=== PATIENT | female | born 1995 | race Two or more races ===

== ENCOUNTER 2024-03-04 01:41 | Observation (INO) | payer BC ==
[~2024-03-04] VITALS: Ht 154.9 cm; Wt 67.1 kg
== END 2024-03-04 02:48 | disposition home or self-care (01) ==
LOC: LDRP 01:41
PROVIDERS: ADMIT Obstetrics & Gynecology; ATTEND Obstetrics & Gynecology
DX: O36.8130 Decreased fetal movements, third trimester, not applicable or unspecified (principal); Z3A.32 32 weeks gestation of pregnancy; Z88.0 Allergy status to penicillin
CPT/HCPCS: 59025; 76818; 81002; 94760; G0378

== ENCOUNTER 2024-04-28 14:29 | Observation (INO) | payer BC ==
[2024-04-28] MEDS ORDERED: PREN-96 PO (16:26)
== END 2024-04-28 16:35 | disposition home or self-care (01) ==
LOC: LDRP 14:29
PROVIDERS: ADMIT Obstetrics & Gynecology; ATTEND Obstetrics & Gynecology
DX: O48.0 Post-term pregnancy (principal); Z3A.40 40 weeks gestation of pregnancy; Z88.0 Allergy status to penicillin; Z88.1 Allergy status to other antibiotic agents
CPT/HCPCS: 59025; 81002; G0378

== ENCOUNTER 2024-04-30 11:18 | Observation (INO) | payer BC ==
[~2024-04-30 11:18] MED LIST: PREN-96 PO
== END 2024-04-30 13:56 | disposition home or self-care (01) ==
LOC: LDRP 11:18
PROVIDERS: ADMIT Obstetrics & Gynecology; ATTEND Obstetrics & Gynecology
DX: O48.0 Post-term pregnancy (principal); O26.893 Other specified pregnancy related conditions, third trimester; N89.8 Other specified noninflammatory disorders of vagina; Z3A.40 40 weeks gestation of pregnancy; Z79.899 Other long term (current) drug therapy; Z88.0 Allergy status to penicillin
CPT/HCPCS: 59025; 76818; 81002; 82948; G0378

== ENCOUNTER 2024-05-02 16:00 | Observation (INO) | payer BC ==
[~2024-05-02] VITALS: Ht 154.9 cm; Wt 71.2 kg
[2024-05-04] MEDS ORDERED: DOCU-265 PO (23:22)
[2024-05-04] MEDS ORDERED: IBU600T PO (23:22)
== END 2024-05-02 18:49 | disposition home or self-care (01) ==
LOC: LDRP 16:00
PROVIDERS: ADMIT Obstetrics & Gynecology; ATTEND Obstetrics & Gynecology
DX: O48.0 Post-term pregnancy (principal); O62.9 Abnormality of forces of labor, unspecified; O46.93 Antepartum hemorrhage, unspecified, third trimester; Z3A.40 40 weeks gestation of pregnancy
CPT/HCPCS: 59025; 76818; 81002; 94760; G0378

== ENCOUNTER 2024-05-03 08:05 | Observation (INO) | payer BC ==
[2024-05-04] MEDS ORDERED: DOCU-265 PO ×2 (23:22)
[2024-05-04] MEDS ORDERED: IBU600T PO ×2 (23:22)
== END 2024-05-03 12:28 | disposition home or self-care (01) ==
LOC: UNDOADMOB 08:05 → LDRP 08:05 → UNDODISOB 12:28
PROVIDERS: ADMIT Obstetrics & Gynecology; ATTEND Obstetrics & Gynecology
DX: O48.0 Post-term pregnancy (principal); O62.9 Abnormality of forces of labor, unspecified; O46.93 Antepartum hemorrhage, unspecified, third trimester; O26.893 Other specified pregnancy related conditions, third trimester; N89.8 Other specified noninflammatory disorders of vagina; Z3A.40 40 weeks gestation of pregnancy
CPT/HCPCS: 59025; 81002; G0378

== ENCOUNTER 2024-05-03 19:34 | Inpatient (IN) | payer BC ==
[~2024-05-03] VITALS: Ht 154.9 cm; Wt 71.2 kg
[2024-05-03] MEDS ORDERED: NALBUPHINE HCL 10 MG/1ml INJECTION IV PRN (20:00)
[2024-05-03] MEDS ORDERED: PENICILLIN G POT 5MIL/D5 50ML 50 ML IV ONE (20:00)
[2024-05-03 20:25] LABS: Basophils # (auto) 0.1 10 ^3/uL (0-0.2); Basophils % (auto) 0.5 % (0.0-2.0); Eosinophils # (auto) 0.1 10 ^3/uL (0-0.8); Eosinophils % (auto) 1.1 % (0.0-7.0); Hematocrit 38.8 % (36.0-46.0); Hemoglobin 13.2 g/dL (12.2-16.2); Lymphocytes # (auto) 2.1 10 ^3/uL (0.4-5.4); Lymphocytes % (auto) 15.6 % (10.0-50.0); Mean Corpuscular Hemoglobin 31.7 pg (28.0-32.0); Mean Corpuscular Hgb Conc. 33.9 g/dL (32.0-36.0); Mean Corpuscular Volume 93.5 fL (80.0-100.0); Monocytes # (auto) 1.1 10 ^3/uL (0-1.3); Monocytes % (auto) 8.1 % (0.0-12.0); Neutrophils # (auto) 9.9 10 ^3/uL (1.6-8.6); Neutrophils % (auto) 74.7 % (37.0-80.0); Red Blood Cells 4.15 10^6/uL (4.0-5.20); Red Cell Distribution Width 13.4 % (11.8-14.3); White Blood Cell 13.3 10^3/uL (4.4-10.8)
[2024-05-03 20:43] LABS: Alanine Aminotransferase 24 U/L (7-40); Albumin 3.7 g/dL (3.2-4.8); Alkaline Phosphatase 123 U/L (46-116); Anion Gap 9 (5-15); Aspartate Aminotransferase 17 U/L (13-40); BUN/Creatinine Ratio 11.8 (10.0-20.0); Bilirubin, Total 0.6 mg/dL (0.2-1.0); Blood Urea Nitrogen 8 mg/dL (9-23); Calcium 9.3 mg/dL (8.5-10.1); Carbon Dioxide 21 mmol/L (20-30); Chloride 104 mmol/L (98-107); Glucose 105 mg/dL (74-106); Potassium 3.7 mmol/L (3.5-5.1); Sodium 134 mmol/L (136-145); Total Protein 6.2 g/dL (5.7-8.2)
[2024-05-03 21:19] LABS: INR 0.94 (0.9-1.15); Partial Thromboplastin Time 25.1 SEC (24.5-34.5)
[2024-05-03] MEDS: ePHEDrine SULFATE 50 MG/ML AMP IV ONE (21:45)
[2024-05-03] MEDS: ePHEDrine SULFATE 50 MG/ML AMP ONE (21:46)
[2024-05-03 23:33] LABS: Urine Bacteria None Seen /hpf (None Seen)
[2024-05-03 23:43] LABS: Urine Blood TRACE /uL (Negative); Urine Clarity Clear (Clear); Urine Color Light-Yellow (Yellow); Urine Mucus FEW (None Seen); Urine Protein, UAD Negative (Negative); Urine Specific Gravity 1.015 (1.001-1.035); Urine Urobilinogen Normal (Negative); Urine WBC 1 /hpf (0 - 5); Urine pH 6.5 (5.0-9.0)
[2024-05-03 23:55] LABS: Amphetamine Screen, Urine Neg (NEGATIVE); Barbiturate Scree,Urine Neg (NEGATIVE); Benzodiazephine Screen, Urine Neg (NEGATIVE); Cannabinoid Screen, Urine Neg (NEGATIVE); Cocaine Screen, Urine Neg (NEGATIVE); Opiate Scree,Urine Neg (NEGATIVE); Phencyclidine Screen, Urine Neg (NEGATIVE)
[2024-05-04] MEDS ORDERED: PENICILLIN G POTASSIUM 2,500,000 UNITS in D5W 5% 50 ML IV SCH
[2024-05-04] MEDS: ROPIVACAINE HCL 200 ML ONE (01:39)
[2024-05-04] MEDS: LACTATED RINGER'S 1,000 ML IV SCH (01:39)
[2024-05-04] MEDS: ACETAMINOPHEN 500 MG TAB PO ONE ×2 (05:43→05:45)
[2024-05-04] MEDS ORDERED: GENTAMICIN PER PHARMACY 0 ML IV SCH (05:45)
[2024-05-04] MEDS: DERMOPLAST 60ML BOTTLE TOP PRN (05:59)
[2024-05-04] MEDS: LACT. RINGERS/OXYTOCIN 20UNITS 1,000 ML IV ONE (06:27)
[2024-05-04] MEDS: MINERAL OIL TOPICAL 10ml TOP ONE (06:40)
[2024-05-04] MEDS: DIPHENOXYLATE W/ATROPINE 2.5 MG TAB ONE (06:41)
[2024-05-04] MEDS: ONDANSETRON HCL 4 MG/2 ML VIAL ONE (06:44)
[2024-05-04] MEDS: CARBOPROST TROMETHAMINE 250 MCG/1ML VIAL IM ONE (06:45)
[2024-05-04] MEDS: PHISODERM TOP SOLN 240ML BTL TOP PRN (06:55)
[2024-05-04] MEDS: LIDOCAINE 2%HCL (LOCAL ANESTH.) INJ 20ML MDV IJ PRN (06:56)
[2024-05-04] MEDS: WITCH HAZEL-GLYCERIN PAD TOP PRN (06:56)
[2024-05-04 06:59] LABS: Basophils # (auto) 0 10 ^3/uL (0-0.2); Basophils % (auto) 0.1 % (0.0-2.0); Eosinophils # (auto) 0 10 ^3/uL (0-0.8); Eosinophils % (auto) 0.1 % (0.0-7.0); Hematocrit 34.5 % (36.0-46.0); Hemoglobin 11.7 g/dL (12.2-16.2); Lymphocytes # (auto) 1.4 10 ^3/uL (0.4-5.4); Lymphocytes % (auto) 7.5 % (10.0-50.0); Mean Corpuscular Hemoglobin 32.1 pg (28.0-32.0); Mean Corpuscular Hgb Conc. 34.1 g/dL (32.0-36.0); Mean Corpuscular Volume 94.2 fL (80.0-100.0); Monocytes # (auto) 1.5 10 ^3/uL (0-1.3); Monocytes % (auto) 7.8 % (0.0-12.0); Neutrophils # (auto) 16.1 10 ^3/uL (1.6-8.6); Neutrophils % (auto) 84.5 % (37.0-80.0); Nucleated Red Blood Cells % 0.1 %; Red Blood Cells 3.66 10^6/uL (4.0-5.20); Red Cell Distribution Width 13.4 % (11.8-14.3)
[2024-05-04] MEDS ORDERED: TRANEXAMIC ACID 1,000 MG in SODIUM CHL 0.9% 100 ML IV ONE (07:00)
[2024-05-04 07:03] LABS: Alanine Aminotransferase 20 U/L (7-40); Alkaline Phosphatase 105 U/L (46-116); Anion Gap 8 (5-15); Aspartate Aminotransferase 23 U/L (13-40); BUN/Creatinine Ratio 11.8 (10.0-20.0); Blood Urea Nitrogen 8 mg/dL (9-23); Calcium 8.6 mg/dL (8.7-10.4); Carbon Dioxide 19 mmol/L (20-30); Chloride 108 mmol/L (98-107); Glucose 114 mg/dL (74-106); Potassium 3.8 mmol/L (3.5-5.1); Sodium 135 mmol/L (136-145)
[2024-05-04 07:04] LABS: Bilirubin, Total 0.6 mg/dL (0.2-1.0); Total Protein 5.1 g/dL (5.7-8.2)
[2024-05-04] MEDS ORDERED: ACETAMINOPHEN 325 MG TAB PO PRN (08:00)
[2024-05-04] MEDS ORDERED: ONDANSETRON ODT 4 MG TAB PO PRN (08:00)
[2024-05-04] MEDS: SODIUM CHL 0.9% IV ONE (08:16)
[2024-05-04] MEDS: GENTAMICIN SULFATE IV ONE (08:16)
[2024-05-04] MEDS: ceFAZolin 2 GM/D5W50ml 50 ML IV SCH ×2 (09:26→18:05)
[2024-05-04 11:15] VITALS: BP 101/52; PULSE 73; RESP 16; TEMP 98.3; O2SAT 98
[2024-05-04 15:12] VITALS: BP 105/56; PULSE 78; RESP 15; TEMP 98.1; O2SAT 98
[2024-05-04 19:00] VITALS: BP 96/50; PULSE 87; RESP 14; TEMP 99; O2SAT 95
[2024-05-04] MEDS: DOCUSATE SOD 100 MG CAP PO SCH (21:51)
[2024-05-04 23:00] VITALS: BP 88/44; PULSE 65; RESP 18; TEMP 98.9; O2SAT 95
[2024-05-04] MEDS ORDERED: DOCU-265 PO ×2 (23:22)
[2024-05-04] MEDS ORDERED: IBU600T PO ×2 (23:22)
[2024-05-04 23:45] VITALS: BP 98/65
[2024-05-05 03:00] VITALS: BP 92/43; PULSE 81; RESP 16; TEMP 98.6; O2SAT 95
[2024-05-05 06:06] LABS: RPR Non Reactive (Non Reactive)
[2024-05-05 07:10] VITALS: TEMP 98.6
[2024-05-05] MEDS: IBUPROFEN 600 MG TAB PO PRN (07:32)
[2024-05-05 08:39] LABS: Basophils # (auto) 0.1 10 ^3/uL (0-0.2); Basophils % (auto) 0.5 % (0.0-2.0); Eosinophils # (auto) 0.2 10 ^3/uL (0-0.8); Eosinophils % (auto) 1.1 % (0.0-7.0); Hematocrit 35.2 % (36.0-46.0); Lymphocytes # (auto) 2.4 10 ^3/uL (0.4-5.4); Lymphocytes % (auto) 13.5 % (10.0-50.0); Mean Corpuscular Hemoglobin 32.7 pg (28.0-32.0); Mean Corpuscular Hgb Conc. 34.1 g/dL (32.0-36.0); Mean Corpuscular Volume 95.8 fL (80.0-100.0); Monocytes # (auto) 1.1 10 ^3/uL (0-1.3); Neutrophils # (auto) 14.1 10 ^3/uL (1.6-8.6); Neutrophils % (auto) 78.9 % (37.0-80.0); Red Blood Cells 3.68 10^6/uL (4.0-5.20); Red Cell Distribution Width 13.3 % (11.8-14.3); White Blood Cell 17.9 10^3/uL (4.4-10.8)
[2024-05-06 18:06] LABS: Treponema pallidum Ab (FTA-Ab) Non Reactive (Non Reactive)
== END 2024-05-05 10:23 | disposition home or self-care (01) | DRG 805 ==
LOC: LDRP 19:34 → UNDOADMIN 19:34 → LDRP 20:00
PROVIDERS: ADMIT Obstetrics & Gynecology; ATTEND Obstetrics & Gynecology
PROC: 10E0XZZ Delivery of Products of Conception, External Approach (ICD-10-PCS; principal; 2024-05-04)
PROC: 0UQMXZZ Repair Vulva, External Approach (ICD-10-PCS; 2024-05-04)
PROC: 3E0R3BZ Introduction of Anesthetic Agent into Spinal Canal, Percutaneous Approach (ICD-10-PCS; 2024-05-04)
PROC: 00HU33Z Insertion of Infusion Device into Spinal Canal, Percutaneous Approach (ICD-10-PCS; 2024-05-04)
DX: O48.0 Post-term pregnancy (principal); O41.1230 Chorioamnionitis, third trimester, not applicable or unspecified; Z37.0 Single live birth; D62 Acute posthemorrhagic anemia; O72.1 Other immediate postpartum hemorrhage; O90.81 Anemia of the puerperium; O70.0 First degree perineal laceration during delivery; Z3A.40 40 weeks gestation of pregnancy; Z88.0 Allergy status to penicillin; Z79.899 Other long term (current) drug therapy
CPT/HCPCS: 36415; 59025; 59409; 62282; 80053; 80307; 81001; 83605; 85025; 85610; 85730; 86592; 86803; 86850; 86900; 86901; 87040; 94760; 96360; G0378; J2405; J2590